=== PATIENT | female | born 1985 | race Asian ===

== ENCOUNTER 2021-08-16 14:37 | Inpatient (IN) | payer OTHER ==
[2021-08-16] MEDS ORDERED: SODIUM CHLORIDE 0.9% 500 ML INFUS.BAG IV ONE (15:44)
[2021-08-16 18:07] LABS: EPI CELLS 7 /uL (0-25.1); HYALINE CASTS 0 /uL (0-3.1); PH,URINE 6.5 (5.0-8.0); URINE APPEARANCE CLOUDY; URINE BACTERIA 11 /uL (0-1359); URINE BILIRUBIN NEGATIVE (NEGATIVE); URINE COLOR YELLOW; URINE GLUCOSE (UA) NEGATIVE (NEGATIVE); URINE KETONE NEGATIVE (NEGATIVE); URINE LEUK ESTERASE NEGATIVE (NEGATIVE); URINE NITRITE NEGATIVE (NEGATIVE); URINE PROTEIN 2+ (NEGATIVE); URINE RBC 5359 /uL (0-23.9); URINE UROBILINOGEN 0.2 mg/dL (0.2-1.0); URINE WBC 7 /uL (0-25.8)
[2021-08-16 18:24] LABS: CHLORIDE 105 mmol/L (98-107); SODIUM 141 mmol/L (136-145)
[2021-08-16 18:27] LABS: ALBUMIN 3.6 g/dl (3.4-5.0); ANION GAP 12 MMOL/L (8-16); BLOOD UREA NITROGEN 11.8 mg/dL (7-18); CALCIUM 9.6 mg/dL (8.5-10.1); CO2 24 mmol/L (21-32); GLUCOSE,RANDOM 89 mg/dL (74-106); MAGNESIUM 2.2 mg/dL (1.8-2.4)
[2021-08-16 18:30] LABS: CREATININE 0.6 mg/dL (0.55-1.3); SGPT/ALT 18 U/L (13-61)
[2021-08-16 18:31] LABS: PHOSPHOROUS 3.1 mg/dL (2.5-4.9); SGOT/AST 17 U/L (15-37)
[2021-08-16 18:32] LABS: BILIRUBIN,TOTAL 0.2 mg/dL (0.2-1); TOT PROT 9.2 g/dl (6.4-8.2)
[2021-08-16 18:33] LABS: ALK PHOS 61 U/L (45-117)
[2021-08-16] MEDS ORDERED: amLODIPine BESYLATE 10 MG TABLET (FP) PO ONE (18:41)
[2021-08-16] MEDS ORDERED: LABETALOL HCL 5 MG/1 ML (100MG/20 ML VIAL) IVPUSH ONE (18:49)
[2021-08-16 19:21] LABS: EOS % 0.3 % (0-4.5); HEMATOCRIT 35.7 % (32.4-45.2); HEMOGLOBIN 11.5 GM/dL (10.7-15.3); LYMPH % 38.3 % (8-40); MCH 24.3 pg (25.7-33.7); MCHC 32.3 g/dl (32.0-36.0); MEAN CELL VOLUME 75.3 fl (80-96); MEAN PLT VOLUME 8.5 fl (7.5-11.1); MONO % 4.3 % (3.8-10.2); NEUT % 56.1 % (42.8-82.8); PLATELET COUNT 386 10^3/uL (134-434); RBC 4.74 M/mm3 (3.60-5.2)
[2021-08-16] MEDS ORDERED: amLODIPine BESYLATE 5 MG TABLET (FP) PO ONE (21:03)
[2021-08-16] MEDS ORDERED: HYDROCHLOROTHIAZIDE 25 MG TABLET (FP) ONE (21:07)
[2021-08-16] MEDS ORDERED: amLODIPine BESYLATE 5 MG TABLET (FP) ONE (21:07)
[2021-08-16] MEDS: HYDROCHLOROTHIAZIDE 12.5 MG CAPSULE (FP) PO SCH (21:10)
[2021-08-17 07:20] LABS: BASO % 0.9 % (0-2.0); EOS % 2.4 % (0-4.5); HEMATOCRIT 36.5 % (32.4-45.2); HEMOGLOBIN 11.5 GM/dL (10.7-15.3); LYMPH % 47.1 % (8-40); MCH 23.9 pg (25.7-33.7); MCHC 31.5 g/dl (32.0-36.0); MEAN CELL VOLUME 75.9 fl (80-96); MEAN PLT VOLUME 8.6 fl (7.5-11.1); MONO % 6.8 % (3.8-10.2); NEUT % 42.8 % (42.8-82.8); PLATELET COUNT 380 10^3/uL (134-434); RBC 4.81 M/mm3 (3.60-5.2); RDW 17.8 % (11.6-15.6)
[2021-08-17 07:36] LABS: CHLORIDE 100 mmol/L (98-107); SODIUM 137 mmol/L (136-145)
[2021-08-17 07:39] LABS: ALBUMIN 3.4 g/dl (3.4-5.0); ANION GAP 9 MMOL/L (8-16); CALCIUM 9.4 mg/dL (8.5-10.1); CO2 28 mmol/L (21-32)
[2021-08-17 07:40] LABS: BLOOD UREA NITROGEN 9.9 mg/dL (7-18); GLUCOSE,RANDOM 93 mg/dL (74-106); MAGNESIUM 1.8 mg/dL (1.8-2.4)
[2021-08-17 07:42] LABS: CHOLESTEROL 283 mg/dL (50-200); CREATININE 0.6 mg/dL (0.55-1.3); SGOT/AST 12 U/L (15-37); SGPT/ALT 16 U/L (13-61)
[2021-08-17 07:43] LABS: LDL CHOLESTEROL (ONLY SJRH) 184 mg/dL (5-100); PHOSPHOROUS 4.2 mg/dL (2.5-4.9); TRIGLYCERIDES 175 mg/dL (0-150)
[2021-08-17 07:44] LABS: BILIRUBIN,TOTAL 0.3 mg/dL (0.2-1); TOT PROT 8.4 g/dl (6.4-8.2)
[2021-08-17 07:45] LABS: ALK PHOS 58 U/L (45-117); HDL CHOLESTEROL 61 mg/dL (40-60)
[2021-08-17] MEDS ORDERED: HYDROCHLOROTHIAZIDE 25 MG TABLET (FP) ONE ×2 (09:25→14:49)
[2021-08-17] MEDS ORDERED: ENOXAPARIN NA (PORCINE) 40 MG/0.4 ML DISP.SYRIN SQ ONE (09:25)
[2021-08-17] MEDS ORDERED: ACETAMINOPHEN 325 MG TABLET (FP) ONE ×2 (09:32→19:49)
[2021-08-17] MEDS: HYDROCHLOROTHIAZIDE 12.5 MG CAPSULE (FP) PO SCH (09:34)
[2021-08-17] MEDS: ACETAMINOPHEN 325 MG TABLET (FP) PO PRN ×2 (09:35→19:51)
[2021-08-17] MEDS: ENOXAPARIN NA (PORCINE) 40 MG/0.4 ML DISP.SYRIN SQ SCH (09:35)
[2021-08-17] MEDS ORDERED: amLODIPine BESYLATE 5 MG TABLET (FP) PO ONE (14:26)
[2021-08-17] MEDS ORDERED: HYDROCHLOROTHIAZIDE 12.5 MG CAPSULE (FP) PO ONE (14:26)
[2021-08-17] MEDS ORDERED: LOSARTAN POTASSIUM 50 MG TABLET PO SCH (14:30)
[2021-08-17] MEDS ORDERED: amLODIPine BESYLATE 5 MG TABLET (FP) ONE (14:48)
[2021-08-17] MEDS ORDERED: MELATONIN 5 MG TABLETS PO ONE (19:57)
[2021-08-17] MEDS ORDERED: MELATONIN 5 MG TABLETS ONE (20:04)
[2021-08-17] MEDS ORDERED: LABETALOL HCL 100 MG TABLET (FP) ONE (22:00)
[2021-08-17] MEDS: LABETALOL HCL 100 MG TABLET (FP) PO SCH (22:02)
[2021-08-18] MEDS: ACETAMINOPHEN 325 MG TABLET (FP) PO PRN ×3 (02:13→17:48)
[2021-08-18 02:54] VITALS: BMI 29.5
[2021-08-18] MEDS: LABETALOL HCL 100 MG TABLET (FP) PO SCH ×3 (06:22→21:05)
[2021-08-18] MEDS: ENOXAPARIN NA (PORCINE) 40 MG/0.4 ML DISP.SYRIN SQ SCH (10:50)
[2021-08-18] MEDS: amLODIPine BESYLATE 10 MG TABLET (FP) PO SCH (10:51)
[2021-08-18] MEDS: HYDROCHLOROTHIAZIDE 12.5 MG CAPSULE (FP) PO SCH (10:51)
[2021-08-19] MEDS: LABETALOL HCL 100 MG TABLET (FP) PO SCH ×2 (05:25→14:06)
[2021-08-19 08:46] LABS: IRON SERUM 26 ug/dL (50-175); TOTAL IRON BINDING CAPACITY 513 ug/dL (250-450)
[2021-08-19] MEDS: ENOXAPARIN NA (PORCINE) 40 MG/0.4 ML DISP.SYRIN SQ SCH (09:16)
[2021-08-19] MEDS: amLODIPine BESYLATE 10 MG TABLET (FP) PO SCH (09:16)
[2021-08-19] MEDS: HYDROCHLOROTHIAZIDE 12.5 MG CAPSULE (FP) PO SCH (09:16)
[2021-08-19 15:56] VITALS: BP 123/92; PULSE 100
[2021-08-19 16:17] VITALS: TEMP 98.4
[2021-08-19] MEDS ORDERED: ATORVASTATIN CA 40 MG TABLET (FP) PO SCH (22:00)
[2021-08-22 12:07] LABS: RENIN ACTIVITY(PRA) 3.286 ng/mL/hr (0.167-5.380)
== END 2021-08-19 16:28 | disposition home or self-care (01) | DRG 199 ==
LOC: JER 14:37 → JERBED 20:15 → OBSVTOIN 21:05 → J4W 08-18 02:10
PROVIDERS: ADMIT Internal Medicine; ATTEND Internal Medicine
DX: I16.0 Hypertensive urgency (principal); R07.89 Other chest pain; E66.3 Overweight; Z68.29 Body mass index [BMI] 29.0-29.9, adult; R31.9 Hematuria, unspecified; E78.5 Hyperlipidemia, unspecified; R42 Dizziness and giddiness
CPT/HCPCS: 36415; 71045-TC-FY; 71250-TC; 74176-TC; 80053; 80061; 81003; 82088; 82550; 82728; 83540; 83550; 83735; 83835; 84100; 84244; 84436; 84439; 84443; 84484; 84703; 85025; 85379; 93005; 93010; 99285-25; C9803; G0378; U0003; U0005

== ENCOUNTER 2022-01-16 16:10 | Emergency (ER) | payer OTHER ==
[2022-01-16 16:42] VITALS: TEMP 98.6; BMI 27.4
[2022-01-16 17:57] LABS: EOS % 2.8 % (0-4.5); HEMATOCRIT 35.7 % (32.4-45.2); HEMOGLOBIN 11.5 GM/dL (10.7-15.3); LYMPH % 43.6 % (8-40); MCH 25.4 pg (25.7-33.7); MCHC 32.3 g/dl (32.0-36.0); MEAN CELL VOLUME 78.7 fl (80-96); MEAN PLT VOLUME 8.5 fl (7.5-11.1); MONO % 6.4 % (3.8-10.2); NEUT % 46.2 % (42.8-82.8); PLATELET COUNT 354 10^3/uL (134-434); RBC 4.53 M/mm3 (3.60-5.2); RDW 16.4 % (11.6-15.6); WHITE BLOOD COUNT 5.5 K/mm3 (4.0-10.0)
[2022-01-16 18:00] LABS: EPI CELLS 14 /uL (0-25.1); HYALINE CASTS 2 /uL (0-3.1); PH,URINE 6.5 (5.0-8.0); URINE APPEARANCE CLEAR; URINE BACTERIA 488 /uL (0-1359); URINE BILIRUBIN NEGATIVE (NEGATIVE); URINE COLOR YELLOW; URINE GLUCOSE (UA) NEGATIVE (NEGATIVE); URINE KETONE TRACE (NEGATIVE); URINE LEUK ESTERASE NEGATIVE (NEGATIVE); URINE NITRITE NEGATIVE (NEGATIVE); URINE PROTEIN 1+ (NEGATIVE); URINE RBC 147 /uL (0-23.9); URINE WBC 21 /uL (0-25.8)
[2022-01-16 18:01] LABS: HCG,QUALITATIVE URINE Negative
[2022-01-16 18:24] LABS: BLOOD UREA NITROGEN 11.8 mg/dL (7-18); CALCIUM 9.3 mg/dL (8.5-10.1)
[2022-01-16 18:25] LABS: ALBUMIN 3.2 g/dl (3.4-5.0)
[2022-01-16 18:27] LABS: CREATININE 0.5 mg/dL (0.55-1.3)
[2022-01-16 18:29] LABS: BILIRUBIN,TOTAL 0.2 mg/dL (0.2-1); TOT PROT 8.5 g/dl (6.4-8.2)
[2022-01-16 22:16] VITALS: BP 149/97; PULSE 100
== END 2022-01-16 22:18 | disposition home or self-care (01) ==
LOC: JER 16:10
DX: R07.89 Other chest pain (principal); I10 Essential (primary) hypertension; R51.9 Headache, unspecified
CPT/HCPCS: 36415; 70450-TC; 71045-TC-FY; 80053; 81003; 84484; 84703; 85025; 87086; 93005; 93010; 99285-25

== ENCOUNTER 2022-03-20 19:10 | Emergency (ER) | payer OTHER ==
[2022-03-20 19:24] VITALS: BP 132/91; PULSE 95; RESP 19; TEMP 98.8; BMI 28.3
[2022-03-20 21:40] LABS: EOS % 4.2 % (0-4.5); HEMOGLOBIN 11.1 GM/dL (10.7-15.3); INR 1.02 (0.83-1.09); LYMPH % 36.3 % (8-40); MCH 24.7 pg (25.7-33.7); MCHC 32.7 g/dl (32.0-36.0); MEAN CELL VOLUME 75.6 fl (80-96); MEAN PLT VOLUME 8.4 fl (7.5-11.1); MONO % 6.3 % (3.8-10.2); NEUT % 52.2 % (42.8-82.8); PLATELET COUNT 369 10^3/uL (134-434); PROTHROMBIN TIME (PATIENT) 11.7 SEC (9.7-13.0); RDW 17.8 % (11.6-15.6); WHITE BLOOD COUNT 7.6 K/mm3 (4.0-10.0)
[2022-03-20 22:02] LABS: CHLORIDE 103 mmol/L (98-107); SODIUM 140 mmol/L (136-145)
[2022-03-20 22:04] LABS: CALCIUM 9.1 mg/dL (8.5-10.1)
[2022-03-20 22:05] LABS: ALBUMIN 3.7 g/dl (3.4-5.0); ANION GAP 7 MMOL/L (8-16); BLOOD UREA NITROGEN 14.8 mg/dL (7-18); CO2 29 mmol/L (21-32); GLUCOSE,RANDOM 113 mg/dL (74-106)
[2022-03-20 22:08] LABS: CREATININE 0.5 mg/dL (0.55-1.3); SGOT/AST 25 U/L (15-37); SGPT/ALT 20 U/L (13-61)
[2022-03-20 22:10] LABS: BILIRUBIN,TOTAL 0.2 mg/dL (0.2-1); TOT PROT 8.5 g/dl (6.4-8.2)
[2022-03-20 22:11] LABS: ALK PHOS 64 U/L (45-117)
== END 2022-03-20 23:12 | disposition home or self-care (01) ==
LOC: JER 19:10
DX: R07.9 Chest pain, unspecified (principal)
CPT/HCPCS: 36415; 71046-TC-FY; 80053; 84484; 85025; 85379; 85610; 85730; 93005; 93010; 99285-25

== ENCOUNTER 2022-10-16 16:47 | Emergency (ER) | payer OTHER ==
[2022-10-16 17:00] VITALS: BP 139/79; RESP 20; BMI 29.2
[2022-10-16] MEDS ORDERED: ACETAMINOPHEN 500 MG TABLET (FP) PO ONE (17:11)
[2022-10-16] MEDS ORDERED: ACETAMINOPHEN 500 MG TABLET (FP) ONE (17:29)
[2022-10-16] MEDS ORDERED: AMOX TR/POT CLAV 875MG/125MG TABLETS (FP) PO ONE (17:37)
[2022-10-16] MEDS ORDERED: AMOX TR/POT CLAV 875MG/125MG TABLETS (FP) ONE (17:43)
[2022-10-16 18:43] VITALS: PULSE 115; TEMP 101.8
== END 2022-10-16 18:55 | disposition home or self-care (01) ==
LOC: JER 16:47 → JERFT 16:47
DX: J02.8 Acute pharyngitis due to other specified organisms (principal); R50.81 Fever presenting with conditions classified elsewhere
CPT/HCPCS: 0241U-QW; 87651; 99283-25

== ENCOUNTER 2023-04-06 02:53 | Emergency (ER) | payer OTHER ==
[2023-04-06 03:07] VITALS: BP 127/78; PULSE 83; RESP 18; TEMP 98.6; BMI 30.2
[2023-04-06] MEDS ORDERED: ACETAMINOPHEN 325 MG TABLET (FP) PO ONE (03:53)
[2023-04-06] MEDS ORDERED: AMOXICILLIN 500 MG CAPSULE (FP) PO ONE (03:56)
[2023-04-06] MEDS ORDERED: ACETAMINOPHEN 325 MG TABLET (FP) ONE (03:58)
[2023-04-06] MEDS ORDERED: diphenhydrAMINE HCL 12.5 MG/5 ML UNIT-DOSE CUPS PO ONE (03:58)
[2023-04-06] MEDS ORDERED: AMOXICILLIN 250 MG CAPSULE ONE (03:58)
[2023-04-06] MEDS ORDERED: diphenhydrAMINE HCL 12.5 MG/5 ML UNIT-DOSE CUPS ONE (04:02)
== END 2023-04-06 04:07 | disposition home or self-care (01) ==
LOC: JER 02:53
DX: O99.611 Diseases of the digestive system complicating pregnancy, first trimester (principal); K08.89 Other specified disorders of teeth and supporting structures; G89.29 Other chronic pain; Z3A.01 Less than 8 weeks gestation of pregnancy
CPT/HCPCS: 99283-25

== ENCOUNTER 2023-06-07 10:10 | Emergency (ER) | payer OTHER ==
[2023-06-07 10:18] VITALS: BP 166/105; PULSE 108; RESP 18; TEMP 98.5; BMI 31.4
[2023-06-07 11:43] LABS: HCG,QUALITATIVE URINE Positive
[2023-06-07 11:45] LABS: EPI CELLS >36 /uL (0-25.1); HYALINE CASTS 1 /uL (0-3.1); PH,URINE 7.5 (5.0-8.0); URINE APPEARANCE CLEAR; URINE BACTERIA 977 /uL (0-1359); URINE BILIRUBIN NEGATIVE (NEGATIVE); URINE COLOR YELLOW; URINE GLUCOSE (UA) NEGATIVE (NEGATIVE); URINE KETONE 1+ (NEGATIVE); URINE LEUK ESTERASE TRACE (NEGATIVE); URINE NITRITE NEGATIVE (NEGATIVE); URINE PROTEIN TRACE (NEGATIVE); URINE UROBILINOGEN 0.2 mg/dL (0.2-1.0); URINE WBC 14 /uL (0-25.8)
[2023-06-07 11:52] LABS: EOS % 2.1 % (0-4.5); HEMATOCRIT 36.3 % (32.4-45.2); HEMOGLOBIN 11.6 GM/dL (10.7-15.3); LYMPH % 34.4 % (8-40); MCH 26.4 pg (25.7-33.7); MCHC 31.8 g/dl (32.0-36.0); MEAN PLT VOLUME 8.3 fl (7.5-11.1); MONO % 5.9 % (3.8-10.2); NEUT % 56.6 % (42.8-82.8); PLATELET COUNT 278 10^3/uL (134-434); RBC 4.38 M/mm3 (3.60-5.2); RDW 19.2 % (11.6-15.6); WHITE BLOOD COUNT 6.2 K/mm3 (4.0-10.0)
[2023-06-07 11:58] LABS: INR 1.02 (0.83-1.09); PROTHROMBIN TIME (PATIENT) 11.8 SEC (9.7-13.0)
[2023-06-07 12:00] LABS: ACTIVATED PTT 32.2 SECONDS (25.2-36.5)
[2023-06-07 12:44] LABS: POTASSIUM 4.1 mmol/L (3.5-5.1)
[2023-06-07 12:46] LABS: BLOOD UREA NITROGEN 4.8 mg/dL (7-18); CALCIUM 8.9 mg/dL (8.5-10.1)
[2023-06-07 12:49] LABS: CREATININE 0.3 mg/dL (0.55-1.3)
[2023-06-07 12:51] LABS: BILIRUBIN,TOTAL 0.2 mg/dL (0.2-1); TOT PROT 7.6 g/dl (6.4-8.2)
== END 2023-06-07 14:57 | disposition home or self-care (01) ==
LOC: JER 10:10
DX: O10.912 Unspecified pre-existing hypertension complicating pregnancy, second trimester (principal); I10 Essential (primary) hypertension; O23.42 Unspecified infection of urinary tract in pregnancy, second trimester; N39.0 Urinary tract infection, site not specified; O26.892 Other specified pregnancy related conditions, second trimester; R30.0 Dysuria; R10.30 Lower abdominal pain, unspecified; R51.9 Headache, unspecified; O21.9 Vomiting of pregnancy, unspecified; Z3A.16 16 weeks gestation of pregnancy
CPT/HCPCS: 36415; 76815-TC; 80053; 81003; 84702; 84703; 85025; 85610; 85730; 87086; 93005; 93010; 99284-25

== ENCOUNTER 2024-02-24 12:02 | Emergency (ER) | payer OTHER ==
[2024-02-24 12:07] VITALS: BP 125/84; PULSE 85; RESP 20; TEMP 98.4; BMI 32.3
[2024-02-24] MEDS ORDERED: IBUPROFEN 600 MG TABLET (FP) PO ONE (13:34)
[2024-02-24] MEDS: IBUPROFEN 600 MG TABLET (FP) PO ONE (13:37)
== END 2024-02-24 15:37 | disposition home or self-care (01) ==
LOC: JERFT 12:02
DX: S63.92XA Sprain of unspecified part of left wrist and hand, initial encounter (principal); S80.12XA Contusion of left lower leg, initial encounter; M25.562 Pain in left knee; W01.0XXA Fall on same level from slipping, tripping and stumbling without subsequent striking against object, initial encounter
CPT/HCPCS: 73110-TC-LT-FY; 73562-TC-LT-FY; 73590-TC-LT-FY; 99284-25

== ENCOUNTER 2024-05-23 14:44 | Emergency (ER) | payer OTHER ==
[2024-05-23 15:21] VITALS: TEMP 98.6; BMI 30.2
[2024-05-23] MEDS ORDERED: ACETAMINOPHEN INJECTION 100 ML ONE ×2 (16:21→16:31)
[2024-05-23] MEDS: ACETAMINOPHEN 1000 MG/100 ML BAG IVPB ONE (16:50)
[2024-05-23 16:52] LABS: BASO % 1.2 % (0-2.0); HEMATOCRIT 39.8 % (32.4-45.2); HEMOGLOBIN 13.3 GM/dL (10.7-15.3); MCH 27.7 pg (25.7-33.7); MCHC 33.3 g/dl (32.0-36.0); MEAN CELL VOLUME 83.2 fl (80-96); MONO % 8.3 % (3.8-10.2); NEUT % 49.5 % (42.8-82.8); PLATELET COUNT 325 10^3/uL (134-434); RBC 4.78 M/mm3 (3.60-5.2); RDW 14.9 % (11.6-15.6); WHITE BLOOD COUNT 4.9 K/mm3 (4.0-10.0)
[2024-05-23 16:59] LABS: INR 0.97 (0.83-1.09); PROTHROMBIN TIME (PATIENT) 11.2 SEC (9.7-13.0)
[2024-05-23 17:02] LABS: ACTIVATED PTT 37.9 SECONDS (25.2-36.5)
[2024-05-23 17:21] LABS: POTASSIUM 3.7 mmol/L (3.5-5.1)
[2024-05-23 17:23] LABS: CALCIUM 9.9 mg/dL (8.5-10.1)
[2024-05-23 17:24] LABS: ALBUMIN 3.9 g/dl (3.4-5.0); BLOOD UREA NITROGEN 9.2 mg/dL (7-18)
[2024-05-23 17:27] LABS: CREATININE 0.5 mg/dL (0.55-1.3)
[2024-05-23 17:29] LABS: BILIRUBIN,TOTAL 0.2 mg/dL (0.2-1); TOT PROT 8.9 g/dl (6.4-8.2)
[2024-05-23 18:10] LABS: HIV INTERPRETATION NEGATIVE (NEGATIVE)
[2024-05-23] MEDS ORDERED: METOCLOPRAMIDE HCL INJECTION 10 MG/2 ML VIAL ONE (18:32)
[2024-05-23] MEDS: SODIUM CHLORIDE 0.9% 500 ML INFUS.BAG IV ONE (18:39)
[2024-05-23] MEDS: METOCLOPRAMIDE HCL INJECTION 10 MG/2 ML VIAL IVPB ONE (18:39)
[2024-05-23 18:40] VITALS: BP 129/92; PULSE 97; RESP 14
[2024-05-23] MEDS ORDERED: MAGNESIUM 1GM/D5W - 1 GM/100 ML IVPB IVPB ONE (18:41)
== END 2024-05-23 21:45 | disposition home or self-care (01) ==
LOC: JER 14:44
PROC: 3E033NZ Introduction of Analgesics, Hypnotics, Sedatives into Peripheral Vein, Percutaneous Approach (ICD-10-PCS; principal; 2024-05-23)
PROC: 3E033GC Introduction of Other Therapeutic Substance into Peripheral Vein, Percutaneous Approach (ICD-10-PCS; 2024-05-23)
DX: R51.9 Headache, unspecified (principal); I10 Essential (primary) hypertension; R05.9 Cough, unspecified; R07.9 Chest pain, unspecified; Z20.822 Contact with and (suspected) exposure to COVID-19
CPT/HCPCS: 0241U-QW; 36415; 71045-TC-FY; 80053; 84439; 84443; 84484; 84703; 85025; 85610; 85730; 86803; 87389; 93005; 93010; 96374; 96375; 99285-25; J0131

== ENCOUNTER 2025-05-20 16:33 | Emergency (ER) | payer OTHER ==
[2025-05-20 16:39] VITALS: BP 93/60; PULSE 98; RESP 20; TEMP 98; BMI 25.4
[2025-05-20 18:25] LABS: ABSOLUTE IMMATURE GRANULOCYTES 0.01 x10^3/uL (0.0-0.031); BASOPHILS # 0.04 x10^3/uL (0.01-0.08); EOSINOPHIL % 0.7 % (0.7-5.8); EOSINOPHILS # 0.04 x10^3/uL (0.04-0.36); MCHC 29.9 g/dl (32.2-35.5); MEAN CELL VOLUME 79.6 fl (79.4-94.8); MEAN PLT VOLUME 11.7 fl (9.4-12.3); MONOCYTE # 0.34 x10^3/uL (0.24-0.86); MONOCYTE % 6.1 % (4.7-12.5); RDW 18.4 % (12.2-17.1)
[2025-05-20 18:42] LABS: GLUCOSE,RANDOM 85.0 mg/dL (74-106); TOT PROT 8.3 g/dl (6.4-8.2)
[2025-05-20 18:43] LABS: CO2 21.0 mmol/L (21-32)
[2025-05-20 18:45] LABS: ALK PHOS 47.0 U/L (40-150)
[2025-05-20 18:47] LABS: SGOT/AST 18.0 U/L (5-34); SGPT/ALT 12.0 U/L (0-55)
[2025-05-20 18:48] LABS: CREATININE 0.48 mg/dL (0.55-1.3)
[2025-05-20 19:08] LABS: HIV INTERPRETATION NEGATIVE (NEGATIVE)
[2025-05-20 19:09] LABS: HCV DIAGNOSTIC IN-HOUSE W/RFLX NON-REACTIVE (NONREACTIVE)
[2025-05-20] MEDS ORDERED: ACETAMINOPHEN 500 MG TABLET (FP) ONE (19:19)
[2025-05-20] MEDS: ACETAMINOPHEN 500 MG TABLET (FP) PO ONE (19:22)
[2025-05-20 19:38] LABS: HCG,QUALITATIVE URINE Positive
[2025-05-20 20:04] LABS: URINE APPEARANCE CLEAR; URINE COLOR YELLOW
[2025-05-20 20:05] LABS: URINE BILIRUBIN NEGATIVE (NEGATIVE); URINE GLUCOSE (UA) NEGATIVE (NEGATIVE); URINE KETONE 15 mg/dl (NEGATIVE); URINE LEUK ESTERASE NEGATIVE (NEGATIVE); URINE NITRITE NEGATIVE (NEGATIVE); URINE PROTEIN NEGATIVE (NEGATIVE); URINE UROBILINOGEN 0.2 mg/dL (0.2-1.0)
[2025-05-20 22:16] LABS: ABSOLUTE IMMATURE GRANULOCYTES 0.01 x10^3/uL (0.0-0.031); BASOPHILS # 0.05 x10^3/uL (0.01-0.08); EOSINOPHIL % 0.7 % (0.7-5.8); EOSINOPHILS # 0.05 x10^3/uL (0.04-0.36); MCHC 30.3 g/dl (32.2-35.5); MEAN CELL VOLUME 79.5 fl (79.4-94.8); MEAN PLT VOLUME 11.2 fl (9.4-12.3); MONOCYTE # 0.50 x10^3/uL (0.24-0.86); MONOCYTE % 7.1 % (4.7-12.5); RDW 18.5 % (12.2-17.1)
== END 2025-05-20 22:32 | disposition home or self-care (01) ==
LOC: JER 16:33
DX: O09.521 Supervision of elderly multigravida, first trimester (principal); O20.9 Hemorrhage in early pregnancy, unspecified; O26.891 Other specified pregnancy related conditions, first trimester; R10.24 Suprapubic pain; Z3A.01 Less than 8 weeks gestation of pregnancy
CPT/HCPCS: 36415; 76817-TC; 80053; 81003; 84702; 84703; 85025; 86803; 86850; 86900; 86901; 87086; 87389; 99284-25